=== PATIENT | male | born 1945 | race Caucasian/White ===

== ENCOUNTER → 2017-08-03 | Outpatient (CLI) | payer MEDICARE ==
--- NOTE | 2017-08-03 17:41 | XR ---
EXAMINATION TYPE: XR abdomen 1V DATE OF EXAM: 08/03/2017 CLINICAL DATA: 72 year-old male abdominal pain and constipation, PH[facility] COMPARISON: None FINDINGS: Lung bases are clear. No evidence for free intraperitoneal air. No dilated small bowel or air-fluid levels. Scattered air and stool seen throughout the colon extendi ng distally into the rectum. Moderate stool burden. No suspicious calcifications identified. IMPRESSION: 1. Moderate stool burden. 2.No evidence of bowel obstruction or free intraperitoneal air.
== END | disposition home or self-care (01) ==
LOC: RADXRMAIN 14:07
PROVIDERS: ATTEND Family Medicine
DX: R10.84 Generalized abdominal pain (principal)
CPT/HCPCS: 74018

== ENCOUNTER → 2017-08-10 | Outpatient (CLI) | payer MEDICARE ==
--- NOTE | 2017-08-10 13:20 | US ---
EXAMINATION TYPE: US gallbladder DATE OF EXAM: 08/10/2017 COMPARISON: NONE CLINICAL HISTORY: R10.9 ABDOMINAL PAIN. constipation for 2-3 weeks, abd distension EXAM MEASUREMENTS: Liver Length: 14.5 cm Gallbladder Wall: 0.2 cm CBD: 0.5 cm Right Kidney: 9.6 x 4.0 x 5.3 cm limited visibility due to bowel gas and high placement of liver within ribcage Pancreas: limited views appear wnl Liver: heterogeneous lesion noted at right dome of liver = 2.9cm, patient states h/o liver lesion bu t had no additional information as to where is was previously seen Gallbladder: wnl Evidence for sonographic Avendano's sign: no CBD: wnl Right Kidney: multiple cystic areas seen, largest at inferior pole = 4.3cm, possible hydronephrosis seen. Significant portions of pancreas are obscured by overlying bowel gas. Visualized liver is heterogeneo usly hyperechoic without intrahepatic ductal dilatation. Evaluation for focal masses suboptimal due t o the heterogeneity. Technologist sullivan vague slightly hypoechoic superficial and hyperechoic deeper area. Images of right kidney show mild to moderate suspected pyelocaliectasis. A thin-walled 4.3 cm c yst is marked lower pole level in the right kidney. Portions of gallbladder shows no shadowing mobile gallstones. IMPRESSION: 1. Suboptimal study, no gallstones or sector ultrasound evidence for acute cholecystitis on images sa veena. 2. Probable diffuse fatty infiltration of liver. Correlate clinically and with liver and lab enzymes. 3. Suspect mild to moderate right-sided hydronephrosis. CT and/or MRI could BE performed to further e valuate liver and right kidney.
== END | disposition home or self-care (01) ==
LOC: RADUSWWP 11:24
PROVIDERS: ATTEND Family Medicine
DX: R10.9 Unspecified abdominal pain (principal)
CPT/HCPCS: 76705

== ENCOUNTER → 2017-08-18 | Outpatient (CLI) | payer MEDICARE ==
--- NOTE | 2017-08-19 07:49 | CT ---
EXAMINATION TYPE: CT abdomen pelvis wo con DATE OF EXAM: 08/18/2017 COMPARISON: Abdominal ultrasound dated 08/03/2016 HISTORY: Generalized abdominal pain and constipation. CT DLP: 957 mGycm Automated exposure control for dose reduction was used. TECHNIQUE: Helical acquisition of images was performed from the lung bases through the pelvis. FINDINGS: Lack of intravenous contrast limits evaluation of the solid viscera. LUNG BASES: Linear right bibasilar pleural-parenchymal scarring and subsegmental atelectasis are seen . LIVER/GB: There is a hepatic cyst at the hepatic dome within segment 8 measuring 1.2 cm. Smaller scat tered hypoattenuated hepatic lesions are too small to accurately characterize but likely represent cy sts. Additionally there is geographic patchy areas of hypoattenuation that given their geographic mor phology most commonly represent areas of focal fatty infiltration. No evidence of cholelithiasis. PANCREAS: No significant abnormality is seen. SPLEEN: Unremarkable unenhanced morphology. Nonenlarged. ADRENALS: No nodularity or thickening. KIDNEYS: There is a 4 mm right upper pole nonobstructing calculus, 2 midpole 1 to 2 mm nonobstructing renal calculi, and 2 3 mm nonobstructing renal calculi. From the inferior pole there is a 3.7 cm jayden al cyst. Smaller right upper pole renal cysts and probable right lower pole renal cyst measures appro ximately 9 mm each. From the left mid pole there is an exophytic 1.0 cm renal cyst. There is mild right hydronephrosis secondary to a partially obstructing right ureteral 4 mm calculus. This was suspected on the prior exam of 718. Right posterior lateral small urinary bladder diverticu lum is suspected left lateral urinary bladder diverticulum are seen. FREE AIR: No free air is visualized REPRODUCTIVE ORGANS: The enlarged prostate gland impresses upon the urinary bladder. Prostate gland i s heterogenous containing central zone calcifications. Small fat filled bilateral inguinal hernias ar e present. Small bowel enters the most cranial portion of the right inguinal hernia but does not appe ar enlarged. URINARY BLADDER: Incompletely evaluated due to lack of contrast and incomplete distention. As mentio romelia above there are urinary bladder diverticulum. ADENOPATHY: No greater than 1 cm short axis lymph nodes are seen within the abdomen or pelvis. No jack spicious adenopathy. OSSEOUS STRUCTURES: Mild to moderate multilevel degenerative disc disease of the lumbosacral spine a nd visualized thoracolumbar spine are noted. BOWEL: There is a small hiatal hernia containing contrast that could relate to gastroesophageal refl ux or incomplete propulsion. IMPRESSION: 1. MILD RIGHT HYDRONEPHROSIS SECONDARY TO A PARTIALLY OBSTRUCTING 4 MM CALCULUS WITHIN THE MID URETER SUSPECTED ON THE PRIOR EXAM OF 08/10/2017. ADDITIONAL NONOBSTRUCTIVE RIGHT RENAL CALCULI ARE DESCR IBED ABOVE. 2. PATCHY AREAS OF GEOGRAPHIC HYPOATTENUATION WITHIN THE LIVER MOST COMMONLY REPRESENT HEPATIC STEATO SIS ALTHOUGH CORRELATION WITH SERUM LABORATORY VALUES IS RECOMMENDED TO EXCLUDE OTHER HEPATOCELLULAR DISEASES. SIMPLE HEPATIC CYSTS AND OTHER SMALLER PROBABLE HEPATIC CYSTS ARE PRESENT. 3. BILATERAL SIMPLE APPEARING RENAL CYSTS 4. URINARY BLADDER DIVERTICULI AND ENLARGEMENT WELL HETEROGENEITY OF THE PROSTATE GLAND. TOGETH ER FINDINGS COULD REPRESENT URINARY BLADDER OUTLET OBSTRUCTION. 5. SMALL BILATERAL FAT FILLED ANGLE HERNIAS WITH SMALL BOWEL ENTERING THE MOST CRANIAL ASPECT OF THE RIGHT INGUINAL HERNIA. NO CURRENT CT EVIDENCE OF ENTRAPMENT OR BOWEL OBSTRUCTION. 6. SMALL HIATAL HERNIA CONTAINING CONTRAST THAT COULD BE RESIDUAL CONTRAST OR GASTROESOPHAGEAL REFLUX . A Yellow level critical message alert has been initiated for Carlitos Eason DO via the [employer] Critical Results System on 08/19/2017 7:47 AM. This message alert has been sent to Carlitos patel DO via the preferences provided by the clinician for the receipt of Radiology Critical Findings. Message ID [id number].
== END | disposition home or self-care (01) ==
LOC: RADCTMAIN 13:51
PROVIDERS: ATTEND Family Medicine
DX: N28.1 Cyst of kidney, acquired (principal); N13.2 Hydronephrosis with renal and ureteral calculous obstruction; K40.90 Unilateral inguinal hernia, without obstruction or gangrene, not specified as recurrent; K44.9 Diaphragmatic hernia without obstruction or gangrene; K76.89 Other specified diseases of liver; N40.0 Benign prostatic hyperplasia without lower urinary tract symptoms; N32.3 Diverticulum of bladder
CPT/HCPCS: 74176

== ENCOUNTER → 2017-08-25 | Outpatient (CLI) | payer MEDICARE ==
--- NOTE | 2017-08-25 10:11 | XR ---
EXAMINATION TYPE: XR KUB DATE OF EXAM: 08/25/2017 9:54 AM CLINICAL HISTORY: 08/18/2017 TECHNIQUE: Single supine KUB image of the abdomen is obtained. COMPARISON: 08/18/2017 CT abdomen pelvis. FINDINGS: Previously seen right-sided calculus at the level of L4-[address] of 08/18/2017 is th ought to be located currently at the right ureterovesicular junction measuring approximately 5 mm. Ri ght upper pole renal calculus measures approximately 4 mm. The other known renal calculi are not visu alized due to overlying bowel gas on the right. Moderate amount retained colonic stool is noted. Mode rate femoral acetabular arthropathy is seen. IMPRESSION: The previously seen right midureteral calculus has progressed and now appears to be locat ed at the right ureterovesicular junction. Punctate right upper pole renal calculus is also seen, lik kleber nonobstructing.
== END | disposition home or self-care (01) ==
LOC: RADXRMAIN 09:37
PROVIDERS: ATTEND Urology
DX: N20.2 Calculus of kidney with calculus of ureter (principal)
CPT/HCPCS: 74018

== ENCOUNTER → 2017-10-05 | Outpatient (CLI) | payer MEDICARE ==
--- NOTE | 2017-10-05 09:12 | XR ---
EXAMINATION TYPE: XR KUB DATE OF EXAM: 10/05/2017 HISTORY: Pain Comparison: 08/25/2017 Single KUB is submitted for interpretation. Findings: Right renal calculi: Stable calculus upper pole right kidney measuring approximately 4 mm. Suspect ad ditional calculus lower pole right kidney measuring 4.5 mm. Right ureteral calculi: 4.6 mm right distal ureteral calculus is unchanged in location Left renal calculi: None Visualized. Left ureteral calculi: None Visualized. Pelvic calcifications: Prostate calcifications identified. Bowel gas pattern is unremarkable. No free air. No mass effects. IMPRESSION: 1. Right-sided nephrolithiasis as noted. 2. Stable distal right ureteral calculus essentially unchanged in position.
== END | disposition home or self-care (01) ==
LOC: RADXRMAIN 08:30
PROVIDERS: ATTEND Urology
DX: N20.2 Calculus of kidney with calculus of ureter (principal)
CPT/HCPCS: 74018

== ENCOUNTER → 2017-10-24 | Outpatient (CLI) | payer MEDICARE ==
--- NOTE | 2017-10-24 12:06 | XR ---
EXAMINATION TYPE: XR KUB DATE OF EXAM: 10/24/2017 COMPARISON: 10/05/2017 HISTORY: Pain TECHNIQUE: One view abdominal series FINDINGS: The osseous structures are intact. The bowel gas pattern is nonspecific. Hypertrophic change of the spine. There is calcifications in the pelvis some which may be related to prostate. At the level of the ischial spine there is a 3.5 mm calcification suspicious for a distal right urete ral calculus. Appears stable from the prior exam. Assessment of the right upper quadrant limited due to retained fecal debris. Punctate 4 mm right uppe r quadrant calcification is stable may be related to right renal stone. IMPRESSION: 1. Right hemipelvic calcification potentially within the distal right ureter stable from prior exam. 2. Suspected stable right-sided nephrolithiasis.
[2017-10-24 12:18] LABS: Basophils % (A) 0 %; Eosinophils % (A) 1 %; HCT 46.2 % (39.0-53.0); HGB 14.8 gm/dL (13.0-17.5); Lymphocytes # (A) 1.2 k/uL (1.0-4.8); Lymphocytes % (A) 34 %; MCH 30.8 pg (25.0-35.0); MCHC 32.1 g/dL (31.0-37.0); Mean Platelet Volume 7.1; Monocytes # (A) 0.3 k/uL (0-1.0); Monocytes % (A) 9 %; Neutrophils # (A) 1.8 k/uL (1.3-7.7); Neutrophils % (A) 52 %; Platelet Count 223 k/uL (150-450); RBC 4.81 m/uL (4.30-5.90); RDW 13.6 % (11.5-15.5); WBC 3.5 k/uL (3.8-10.6)
[2017-10-24 12:53] LABS: Appearance,Urine Clear (Clear); Bilirubin,Urine Negative (Negative); Blood,Urine Negative (Negative); Color,Urine Yellow; Glucose,Urine (UA) Negative (Negative); Ketones,Urine Negative (Negative); Leukocyte Esterase,Urine Small (Negative); Mucus,Urine Rare /hpf; Nitrite,Urine Positive (Negative); PH, Urine 5.5 (5.0-8.0); Protein,Urine Negative (Negative); Specific Gravity,Urine 1.015 (1.001-1.035); Squamous Epithelial Cell,Urine <1 /hpf (0-4); Urobilinogen,Urine <2.0 mg/dL (<2.0); WBC,Urine 7 /hpf (0-5)
== END | disposition home or self-care (01) ==
LOC: RADXRMAIN 11:28
PROVIDERS: ATTEND Urology
DX: N28.89 Other specified disorders of kidney and ureter (principal)
CPT/HCPCS: 36415; 74018; 80051; 81001; 82565; 84520; 85025

== ENCOUNTER 2017-10-31 09:06 | Day surgery (SDC) | payer MEDICARE ==
[2017-10-25 16:04] VITALS: BMI 28.1
--- NOTE | 2017-10-28 08:02 | P.GSHP ---
History of Present Illness H&P Date: 10/28/17 71 yo male with a persistent pain due to a 5 mm distal right ureteral stone who comes for eswl - Review of Systems ROS unobtainable: Reports: due to endotracheal tube, due to mental status Past Medical History Past Medical History: Skin Disorder Additional Past Medical History / Comment(s): Kidney stone, rosacea, hx colon polyp, inguinal hernia History of Any Multi-Drug Resistant Organisms: None Reported Additional Past Surgical History / Comment(s): colonoscopy Past Anesthesia/Blood Transfusion Reactions: No Reported Reaction Smoking Status: Never smoker - Past Family History Brother(s) Family Medical History: Cancer Additional Family Medical History / Comment(s): lung Medications and Allergies Home Medications Medication Instructions Recorded Confirmed Type Erythromycin Ophth Oint [Romycin 1 applic BOTH EYES QID PRN 10/25/17 10/25/17 History Ophth Oint] Triamcinolone 0.025% Cream 1 applic TOPICAL DAILY PRN 10/25/17 10/25/17 History [Kenalog 0.025% Cream] Allergies Allergy/AdvReac Type Severity Reaction Status Date / Time No Known Allergies Allergy Verified 10/25/17 15:52 Surgical - Exam - General well developed, well nourished, no distress - Eyes PERRL - ENT no hearing loss - Neck no masses - Respiratory normal expansion, normal respiratory effort - Cardiovascular Rhythm: regular - Abdomen Abdomen: soft, non tender - Genitourinary normal penis with no external lesions, testicles present - Neurologic normal coordination, normal sensation - Musculoskeletal normal gait, normal posture - Psychiatric oriented to time, oriented to person, oriented to place, speech is normal, memory intact Assessment and Plan Assessment: Impression: Right ureteral calculous Plan; Right ESWL
[~2017-10-31 09:06] MED LIST: LACTATED RINGERS 1,000 ML IV SCH
--- NOTE | 2017-10-31 09:30 | XR ---
EXAMINATION TYPE: XR KUB DATE OF EXAM: 10/31/2017 HISTORY: 10/24/2017 Comparison: None.Single KUB is submitted for interpretation. Findings: Right renal calculi: Stable right-sided renal calculi noted with upper pole calculus measuring 3.5 mm as well as additional calculus lower pole right kidney measuring 2.6 mm. Right ureteral calculi: Suspect distal right ureteral calculus unchanged in position from prior study measuring approximately 4 mm. Left renal calculi: None Visualized. Left ureteral calculi: None Visualized. Pelvic calcifications: None Visualized. Bowel gas pattern is unremarkable. No free air. No mass effects. IMPRESSION: 1. No change in distal right ureteral calculus as well as right-sided renal calculi.
[2017-10-31 10:00] VITALS: RESP 16; TEMP 98.1
[2017-10-31] MEDS ORDERED: LIDOCAINE 1% 20 ML VIAL (10MG/ML) FOR IV START INTRADERMA ONE (10:07)
[2017-10-31] MEDS ORDERED: KETAMINE 10 MG/ML 20 ML VIAL ONE (10:34)
[2017-10-31] MEDS ORDERED: MIDAZOLAM 2 MG/2 ML VIAL ONE (10:34)
[2017-10-31] MEDS ORDERED: PROPOFOL 10 MG/ML 20 ML VIAL IV ONE (10:34)
[2017-10-31] MEDS ORDERED: FUROSEMIDE 10 MG/ML 2 ML VIAL ONE (10:34)
[2017-10-31] MEDS ORDERED: fentaNYL (PF) 50 MCG/ML 2 ML AMP ONE (10:34)
--- NOTE | 2017-10-31 11:19 | P.OP ---
Date of Procedure: 10/31/17 Preoperative Diagnosis: Right Ureteral Calculus Postoperative Diagnosis: Same Procedure(s) Performed: Right Extracorporal Shockwave Lithotripsy (ESWL) Anesthesia: MAC Surgeon: Tony Crabtree Estimated Blood Loss (ml): 0 IV fluids (ml): 900 Pathology: none sent Condition: stable Disposition: PACU Indications for Procedure: 71 yo male with a persistent pain due to a 5 mm distal right ureteral stone who comes for ESWL. Operative Findings: The calculus is noted to fragment. Description of Procedure: The patient was taken to the operating room and placed on the D[employer]ier Lightspeed Delta II lithotripter in the supine position. The calculus was seen on biplanar fluoroscopy. Lasix 10 mg was given intravenously. Once the patient was properly positioned and sedated, lithotripsy was performed. The energy level was gradually increased per protocol, to an energy level of 6. A total of 3000 shocks were given at a rate of 80 shocks per minute. Fluoroscopy was utilized at a minimum to ensure proper positioning and determine the treatment status. The calculus changed in appearance, consistent with fragmentation. The patient tolerated the procedure well was taken to the recovery room in stable condition. Instructions were given to strain the urine, and the patient will follow-up within one week.
[2017-10-31 11:52] VITALS: BP 162/82; PULSE 59
== END 2017-10-31 13:30 | disposition home or self-care (01) ==
LOC: ORWHC2ENDO 09:06
PROVIDERS: ATTEND Urology
DX: N20.1 Calculus of ureter (principal); L71.9 Rosacea, unspecified
CPT/HCPCS: 74018; 50590; J2250; J1940; J3010; J2704

== ENCOUNTER → 2017-11-04 | Outpatient (CLI) | payer MEDICARE ==
--- NOTE | 2017-11-04 10:25 | XR ---
EXAMINATION TYPE: XR KUB DATE OF EXAM: 11/04/2017 9:43 AM CLINICAL HISTORY: Right ureter calculus, history of stones TECHNIQUE: Two Upright KUB images of the abdomen are obtained. COMPARISON: CT abdomen and pelvis August 18, 2017. Most recent abdominal x-ray August 30, 2017 FINDINGS: Previously suspected distal right ureter calculus measuring 4 mm is not clearly seen on lexi bonilla's study. Suspect interval passage. Calcifications just superior to pubic symphysis correlate with prostatic calcifications. There is redemonstration of 2 4 to 5 mm calculi right kidney upper and lowe r pole levels felt stable. No definitive left-sided renal calculi. Overall nonobstructive bowel gas pattern. Visualized lung bases are clear. Moderate disc space narrow ing L2-L3 level is redemonstrated. IMPRESSION: Suspect interval passage of distal right ureter calculus. Stable nonobstructing right jayden al calculi.
== END | disposition home or self-care (01) ==
LOC: RADXRMAIN 09:15
PROVIDERS: ATTEND Urology
DX: N20.2 Calculus of kidney with calculus of ureter (principal); Z98.890 Other specified postprocedural states
CPT/HCPCS: 74018

== ENCOUNTER → 2017-11-21 | Outpatient (CLI) | payer MEDICARE ==
[2017-11-21 11:39] LABS: Basophils % (A) 1 %; Eosinophils % (A) 1 %; HCT 46.6 % (39.0-53.0); HGB 15.4 gm/dL (13.0-17.5); Lymphocytes % (A) 26 %; MCH 31.4 pg (25.0-35.0); MCHC 33.2 g/dL (31.0-37.0); MCV 94.6 fL (80.0-100.0); Mean Platelet Volume 6.6; Monocytes # (A) 0.3 k/uL (0-1.0); Monocytes % (A) 7 %; Neutrophils # (A) 2.5 k/uL (1.3-7.7); Neutrophils % (A) 64 %; Platelet Count 198 k/uL (150-450); RBC 4.92 m/uL (4.30-5.90); RDW 13.1 % (11.5-15.5); WBC 3.9 k/uL (3.8-10.6)
[2017-11-21 11:47] LABS: Amorphous Sediment,Urine Occasional /hpf; Appearance,Urine Clear (Clear); Bacteria,Urine Rare /hpf; Bilirubin,Urine Negative (Negative); Blood,Urine Trace (Negative); Color,Urine Yellow; Glucose,Urine (UA) Negative (Negative); Ketones,Urine 1+ (Negative); Leukocyte Esterase,Urine Small (Negative); Mucus,Urine Rare /hpf; Nitrite,Urine Positive (Negative); PH, Urine 5.5 (5.0-8.0); Protein,Urine Negative (Negative); RBC,Urine 5 /hpf (0-5); Specific Gravity,Urine 1.017 (1.001-1.035); Squamous Epithelial Cell,Urine <1 /hpf (0-4); Urobilinogen,Urine <2.0 mg/dL (<2.0); WBC,Urine 11 /hpf (0-5)
[2017-11-21 11:50] LABS: Potassium 4.8 mmol/L (3.5-5.1)
== END | disposition home or self-care (01) ==
LOC: LABPAT 10:20
PROVIDERS: ATTEND Urology
DX: Z01.812 Encounter for preprocedural laboratory examination (principal); N20.0 Calculus of kidney
CPT/HCPCS: 36415; 80051; 81001; 82565; 84520; 85025

== ENCOUNTER 2017-11-28 06:55 | Day surgery (SDC) | payer MEDICARE ==
[2017-11-23 14:20] VITALS: BMI 25.8
--- NOTE | 2017-11-27 20:12 | P.GSHP ---
History of Present Illness H&P Date: 11/27/17 72 yo male who underwent a successful eswl to a right ureteral stone He now comes for eswl to the right renal stones, 4&5 mm - Constitutional Constitutional: Denies chills, Denies fever - EENT Eyes: denies blurred vision, denies pain Ears, nose, mouth and throat: Denies headache, Denies sore throat - Cardiovascular Cardiovascular: Denies chest pain, Denies shortness of breath - Respiratory Respiratory: Denies cough, Denies 7 - Gastrointestinal Gastrointestinal: Denies abdominal pain, Denies diarrhea, Denies nausea, Denies vomiting - Genitourinary (Female) Genitourinary: Denies dysuria, Denies hematuria - Genitourinary (Male) Genitourinary: Denies dysuria, Denies hematuria - Musculoskeletal Musculoskeletal: Denies myalgias - Integumentary Integumentary: Denies pruritus, Denies rash - Neurological Neurological: Denies numbness, Denies weakness - Psychiatric Psychiatric: Denies anxiety, Denies depression - Endocrine Endocrine: Denies fatigue, Denies weight change Past Medical History Past Medical History: GERD/Reflux, Hypertension, Skin Disorder Additional Past Medical History / Comment(s): no rx for BP, constipation, rosacea, kidney stones, History of Any Multi-Drug Resistant Organisms: None Reported Additional Past Surgical History / Comment(s): colonoscopy Past Anesthesia/Blood Transfusion Reactions: No Reported Reaction Smoking Status: Never smoker - Past Family History Brother(s) Family Medical History: Cancer Medications and Allergies Home Medications Medication Instructions Recorded Confirmed Type Erythromycin Ophth Oint [Romycin 1 applic BOTH EYES QID PRN 10/25/17 11/23/17 History Ophth Oint] Triamcinolone 0.025% Cream 1 applic TOPICAL DIRECTED PRN 10/25/17 11/23/17 History [Kenalog 0.025% Cream] Hydrocodone/Acetaminophen [[place] 1 - 2 each PO Q4HR PRN #10 tab 10/31/17 Rx 5-325] Benzoyl Peroxide [Panoxyl] 1 applic TOPICAL DAILY PRN 11/23/17 11/23/17 History Bisacodyl [Dulcolax] 5 mg PO DAILY PRN 11/23/17 11/23/17 History Esomeprazole Magnesium [NexIUM] 20 mg PO DAILY 10/10/18 10/10/18 History Allergies Allergy/AdvReac Type Severity Reaction Status Date / Time No Known Allergies Allergy Verified 11/23/17 14:09 Surgical - Exam - General well developed, well nourished, no distress - Eyes PERRL - ENT no hearing loss - Neck trachea midline - Respiratory normal expansion, normal respiratory effort - Cardiovascular Rhythm: regular - Abdomen Abdomen: soft, non tender - Genitourinary normal penis with no external lesions, testicles present - Neurologic normal coordination, normal sensation - Musculoskeletal normal gait, normal posture - Psychiatric oriented to time, oriented to person, oriented to place, speech is normal, memory intact Assessment and Plan Assessment: Impression: Right renal stones Plan: eswl right
[~2017-11-28 06:55] MED LIST changes: +LIDOCAINE 1% 20 ML VIAL (10MG/ML) FOR IV START INTRADERMA PRN; +Pre Op ABX Message 1 EACH MISC MISCELLANE ONE
--- NOTE | 2017-11-28 07:22 | XR ---
EXAMINATION TYPE: XR KUB DATE OF EXAM: 11/28/2017 CLINICAL DATA: 72 year-old male right renal stones, 11/04/2017 COMPARISON: 11/04/2017 FINDINGS: Nonobstructive bowel gas pattern with mild stool burden. Rounded phlebolith in the right side of the pelvis. Calcifications in the pelvis probably represent phleboliths. Some central prosthetic calcific ations are also noted low in the pelvis. 4 mm calcification in the right midabdomen is unchanged. IMPRESSION: Stable 4 mm calcification in the right side of the abdomen, possible renal calculus.
[2017-11-28 07:49] VITALS: RESP 16; TEMP 98
[2017-11-28] MEDS ORDERED: ONDANSETRON 4 MG/2 ML VIAL IVP ONE (08:02)
[2017-11-28] MEDS ORDERED: DEXAMETHASONE SOD PHOSPHATE 10 MG/ML 1 ML VIAL IV ONE (08:02)
[2017-11-28] MEDS ORDERED: LIDOCAINE 1% INJ 10MG/ML (20 ML MDV) ONE (08:39)
[2017-11-28] MEDS ORDERED: PROPOFOL 10 MG/ML 20 ML VIAL IV ONE (08:39)
--- NOTE | 2017-11-28 09:16 | P.OP ---
Date of Procedure: 11/28/17 Preoperative Diagnosis: Right renal calculus Postoperative Diagnosis: Right renal calculus Procedure(s) Performed: Extracorporal shock wave lithotripsy Anesthesia: MAC Surgeon: Alpesh Aguilar Estimated Blood Loss (ml): 0 Pathology: none sent Condition: stable Disposition: PACU Indications for Procedure: The patient is a 72 year old male with urolithiasis who has a 4x5 mm calculus in the upper pole of the right kidney. Treatment options were reviewed with Dr Huddleston and ESWL has been chosen. Description of Procedure: The patient was taken to the operating suite and placed in the supine position on the fluoroscopy table. The calculus in the upper pole of the right kidney was localized with biplanar fluoroscopy. Intravenous sedation was given. Lithotripsy was performed with the D[employer]ier Compact Delta II unit. A two minute pause was taken after 200 shocks. The patient received 2000 shocks at level 4. There appeared to be good fragmentation of the calculus and no fragments were visible after 1500 shocks. . The anesthesia was reversed and the patient was taken to the recovery room in satisfactory condition. He will see Dr Huddleston in 1 week at which time a KUB will be repeated.
[2017-11-28 09:38] VITALS: BP 150/80; PULSE 56
== END 2017-11-28 10:20 | disposition home or self-care (01) ==
LOC: ORWHC2ENDO 06:55
PROVIDERS: ATTEND Urology
DX: N20.0 Calculus of kidney (principal); K21.9 Gastro-esophageal reflux disease without esophagitis; I10 Essential (primary) hypertension; L71.9 Rosacea, unspecified; Z79.899 Other long term (current) drug therapy
CPT/HCPCS: 74018; 50590; J1100; J2405; J2001; J2704

== ENCOUNTER → 2017-12-05 | Outpatient (CLI) | payer MEDICARE ==
--- NOTE | 2017-12-05 08:02 | XR ---
EXAMINATION TYPE: XR abdomen 1V DATE OF EXAM: 12/05/2017 COMPARISON: 11/28/2017 HISTORY: Right-sided nephrolithiasis status post lithotripsy. TECHNIQUE: Single view the abdomen was obtained FINDINGS: A 4 mm punctate right mid abdominal calculus is again unchanged. Phleboliths are noted with in the low pelvis, similar to the prior. No new calcifications are seen within the abdomen. No dilate d large or small bowel. Osseous structures appear intact. IMPRESSION: No new calculi along the course of the ureters or within the left abdomen. Stable 4 mm ri ght mid abdominal calculus
== END | disposition home or self-care (01) ==
LOC: RADXRMAIN 07:17
PROVIDERS: ATTEND Urology
DX: N20.0 Calculus of kidney (principal)
CPT/HCPCS: 74018

== ENCOUNTER → 2018-03-07 | Outpatient (CLI) | payer MEDICARE ==
--- NOTE | 2018-03-07 11:20 | XR ---
EXAMINATION TYPE: XR KUB DATE OF EXAM: 03/07/2018 COMPARISON: 12/05/2017 HISTORY: Pain TECHNIQUE: One view abdominal series FINDINGS: The osseous structures are intact. The bowel gas pattern is nonspecific. Calcification along the lat eral margin of the right acetabulum may been the basis of a chronic labral tear. Calcifications the p leelee are nonspecific. Hypertrophic and degenerative change of the spine. IMPRESSION: 1. Nonspecific abdomen.
== END ==
LOC: RADXRMAIN 10:37
PROVIDERS: ATTEND Urology
DX: N20.1 Calculus of ureter (principal)
CPT/HCPCS: 74018

== ENCOUNTER → 2018-03-15 | Outpatient (CLI) | payer MEDICARE ==
--- NOTE | 2018-03-15 17:09 | CT ---
EXAMINATION TYPE: CT abdomen pelvis wo con DATE OF EXAM: 03/15/2018 COMPARISON: 08/18/2017 INDICATION: Right flank and groin pain. DLP: 446.4 mGycm, Automated exposure control for dose reduction was used. CONTRAST: 0 mL of Isovue 300. Study performed without Oral Contrast TECHNIQUE: Axial images were obtained from above the diaphragm to the pubic rami in the axial plane a t 5 mm thick sections. Reconstructed images are reviewed on the computer in the coronal plane. FINDINGS: Limited CT sections are obtained the lung bases. The lung bases are clear. CT ABDOMEN: Liver: There are couple small hypodensities within the liver too small to classify. The hypodensity w ithin the superior right dome of the liver was present previously Spleen: Normal Pancreas: Normal Adrenal glands: The adrenal glands are normal. Gallbladder: Normal Kidneys: No masses are evident. No hydronephrosis is present. There is a 1.2 cm cyst in the posteri or lateral right kidney. Nonobstructing renal stones in the lateral right mid kidney measuring 0.3 cm . There is a cyst at the inferior posterior pole right kidney measuring 3.9 cm and 12 Hounsfield unit s. Additional nonobstructing renal stones are at the inferior pole right kidney measuring 0.4 and 0.3 cm in size. There is a punctate nonobstructing renal stone at the inferior pole left kidney measurin g 0.2 cm. The mid pole left renal stone without obstruction measures 0.3 cm. There is a 1.0 cm exophy tic hypodensity likely is a small cortical renal cysts at the mid left kidney. Aorta: Vascular calcification is within the aorta. Inferior vena cava: Normal. CT PELVIS: Loops of bowel within the abdomen and pelvis are normal. There are loops of bowel which are incom pletely distended or lack oral contrast limiting their evaluation. Appendix: Normal as visualized. Urinary bladder: There is a 0.3 cm calcification within the dependent urinary bladder slightly to the left. This may be a recently passed renal stone. This could potentially be at the ureterovesical viv ction although the findings suggest the ureterovesical junction at this level is slightly lateral to the location of the stone. Additionally, there is some calcification within the dependent portion or within the wall of the posterior lateral right ureter. Genitourinary structures: Prostate contains calcification. Osseous structures: No suspicious lytic or sclerotic lesions. IMPRESSIONS: 1. Multiple nonobstructing bilateral renal stones. 2. Urinary bladder stones and/or urinary bladder wall calcification. 3. Recent passage of the ureteral stone is suspected. A left ureteral vesicle junction stone is consi dered less likely.
== END | disposition home or self-care (01) ==
LOC: RADCTMAIN 13:39
PROVIDERS: ATTEND Urology
DX: N20.0 Calculus of kidney (principal)
CPT/HCPCS: 74176

== ENCOUNTER → 2018-03-22 | Outpatient (CLI) | payer MEDICARE ==
[2018-03-22 11:23] LABS: Appearance,Urine Clear (Clear); Bacteria,Urine Rare /hpf; Bilirubin,Urine Negative (Negative); Blood,Urine Negative (Negative); Color,Urine Yellow; Glucose,Urine (UA) Negative (Negative); Ketones,Urine Negative (Negative); Leukocyte Esterase,Urine Trace (Negative); Mucus,Urine Rare /hpf; Nitrite,Urine Positive (Negative); PH, Urine 6.5 (5.0-8.0); Protein,Urine Negative (Negative); Specific Gravity,Urine 1.015 (1.001-1.035); Squamous Epithelial Cell,Urine <1 /hpf (0-4); Urobilinogen,Urine <2.0 mg/dL (<2.0); WBC,Urine 8 /hpf (0-5)
[2018-03-22 11:59] LABS: Basophils % (A) 1 %; Eosinophils # (A) 0.1 k/uL (0-0.7); Eosinophils % (A) 1 %; HCT 46.3 % (39.0-53.0); HGB 14.7 gm/dL (13.0-17.5); Lymphocytes # (A) 1.2 k/uL (1.0-4.8); Lymphocytes % (A) 34 %; MCH 30.4 pg (25.0-35.0); MCHC 31.8 g/dL (31.0-37.0); MCV 95.5 fL (80.0-100.0); Mean Platelet Volume 6.8; Monocytes # (A) 0.2 k/uL (0-1.0); Monocytes % (A) 6 %; Neutrophils % (A) 56 %; Platelet Count 198 k/uL (150-450); RBC 4.84 m/uL (4.30-5.90); RDW 13.6 % (11.5-15.5); WBC 3.6 k/uL (3.8-10.6)
[2018-03-22 12:11] LABS: Calcium 9.8 mg/dL (8.4-10.2)
== END ==
LOC: LABPAT 10:17
PROVIDERS: ATTEND Urology
DX: Z01.812 Encounter for preprocedural laboratory examination (principal); N20.1 Calculus of ureter; R31.29 Other microscopic hematuria
CPT/HCPCS: 36415; 80048; 81001; 85025; 87086

== ENCOUNTER 2018-03-29 07:41 | Day surgery (SDC) | payer MEDICARE ==
[2018-03-27 14:36] VITALS: BMI 25.8
--- NOTE | 2018-03-28 18:46 | P.GSHP ---
History of Present Illness H&P Date: 03/28/18 Chief Complaint: Bilateral ureteral calculi The patient is a 73-year-old male with a history of urolithiasis who developed right flank pain approximately 3 weeks ago. He was evaluated by and a CT scan of the abdomen and pelvis without IV contrast on 03/15/2018 was obtained. This showed a 3 x 5 mm calculus in the lower pole of the right kidney and several 1-2 mm calculi in the mid pole. There was no definite hydronephrosis or hydroureter. There were some calcifications in the region of the right ureterovesical junction but it was unclear whether these were within the ureter. Since that time the patient has also experienced some left flank pain. The CT scan on 03/15 did identify a 2 x 3 mm calculus in the region of the left ureterovesical junction. Dr Huddleston discussed cystoscopy with bilateral retrogrades but is unable to perform the surgery at this time. I reviewed the patient's CT scan and discussed the procedure with the patient. Cystoscopy with bilateral retrograde pyelograms will be performed with ureteroscopy and lithotripsy in the event that ureteral calculi are identified. The patient had previously undergone ESWL treatment for a 5 mm distal right ureteral calculus on 10/31/2017 and ESWL treatment of a 4-5 mm right upper pole calculus on 11/28/2017. Both calculi appeared to fragment and were no longer visible on the most recent CT scan. - Constitutional Constitutional: Denies fever - Cardiovascular Cardiovascular: Denies chest pain, Denies shortness of breath - Respiratory Respiratory: Denies cough, Denies wheezing - Gastrointestinal Gastrointestinal: Reports as per HPI - Menstruation Menstruation: Reports as per HPI Past Medical History Additional Past Medical History / Comment(s): States irreg H/R, hx. of kidney stones. History of Any Multi-Drug Resistant Organisms: None Reported Additional Past Surgical History / Comment(s): Colonoscopy, ESWL treatment right ureteral calculus 10/31/2017 and ESWL right renal calculus 11/28/2017 Past Anesthesia/Blood Transfusion Reactions: No Reported Reaction Smoking Status: Never smoker - Past Family History Mother Family Medical History: No Reported History Brother(s) Family Medical History: Cancer Additional Family Medical History / Comment(s): Lung Medications and Allergies Home Medications Medication Instructions Recorded Confirmed Type Erythromycin Ophth Oint [Romycin 1 applic BOTH EYES QID PRN 10/25/17 03/27/18 History Ophth Oint] Triamcinolone 0.025% Cream 1 applic TOPICAL DIRECTED PRN 10/25/17 03/27/18 History [Kenalog 0.025% Cream] Benzoyl Peroxide [Panoxyl] 1 applic TOPICAL DAILY PRN 11/23/17 03/27/18 History Bisacodyl [Dulcolax] 5 mg PO DAILY PRN 11/23/17 03/27/18 History Acetaminophen [Tylenol] 325 mg PO Q4H PRN 03/27/18 03/27/18 History Calcium Carbonate [Tums] 200 mg PO DAILY PRN 03/27/18 03/27/18 History Psyllium Husk 100% [Metamucil 6 gm PO DAILY PRN 03/27/18 03/27/18 History Packet] Allergies Allergy/AdvReac Type Severity Reaction Status Date / Time No Known Allergies Allergy Verified 03/27/18 14:14 Surgical - Exam - General well developed, well nourished, no distress - ENT no hearing loss - Neck no masses, no lymphadectomy - Respiratory normal respiratory effort - Abdomen Abdomen: soft, non tender, no organomegaly Hernia: none - Genitourinary normal penis with no external lesions Assessment and Plan (1) Bilateral ureteral calculi Narrative/Plan: The patient will undergo cystoscopy with bilateral retrograde pyeloureterograms under general anesthesia. In the event that ureteral calculi are identified ureteroscopy with lithotripsy will be performed for treatment. Patient is aware of the operative risks which include pain, hematuria, infection and inability to remove the calculi. Status: Acute Code(s): N20.1 - CALCULUS OF URETER SNOMED Code(s): 51884811
[~2018-03-29 07:41] MED LIST changes: -LACTATED RINGERS 1,000 ML IV SCH; -LIDOCAINE 1% 20 ML VIAL (10MG/ML) FOR IV START INTRADERMA PRN; -Pre Op ABX Message 1 EACH MISC MISCELLANE ONE; +ceFAZolin 1,000 MG in DEXTROSE/WATER 1 50ML.BAG IVPB ONE
[2018-03-29] MEDS ORDERED: HYDROmorphone 0.5 MG/0.5 ML SYRINGE IVP PRN (07:53)
[2018-03-29] MEDS ORDERED: ONDANSETRON 4 MG/2 ML VIAL IVP ONE (07:53)
[2018-03-29] MEDS ORDERED: SCOPOLAMINE 1.5MG/72HR PATCH TRANSDERM ONE (07:53)
[2018-03-29] MEDS ORDERED: LACTATED RINGERS 1,000 ML IV SCH (07:53)
[2018-03-29] MEDS ORDERED: LIDOCAINE 1% 20 ML VIAL (10MG/ML) FOR IV START INTRADERMA PRN (07:53)
[2018-03-29] MEDS ORDERED: MIDAZOLAM (PF) 2 MG/2 ML VIAL IV PRN (07:53)
[2018-03-29] MEDS ORDERED: DEXAMETHASONE SOD PHOSPHATE 10 MG/ML 1 ML VIAL IV ONE (07:53)
[2018-03-29] MEDS ORDERED: LIDOCAINE 1% INJ 10MG/ML (20 ML MDV) ONE (08:21)
[2018-03-29] MEDS ORDERED: SUCCINYLCHOLINE CHLORIDE 100 MG/5 ML SYR IV ONE (08:21)
[2018-03-29] MEDS ORDERED: MIDAZOLAM 2 MG/2 ML VIAL ONE (08:21)
[2018-03-29] MEDS ORDERED: ePHEDrine SULFATE/0.9% NACL/PF 50 MG/5 ML SYRINGE IV ONE (08:21)
[2018-03-29] MEDS ORDERED: ceFAZolin 1,000 MG VIAL ONE (08:21)
[2018-03-29] MEDS ORDERED: PROPOFOL 10 MG/ML 20 ML VIAL IV ONE (08:21)
[2018-03-29] MEDS ORDERED: fentaNYL (PF) 50 MCG/ML 2 ML AMP ONE (08:21)
--- NOTE | 2018-03-29 08:26 | XR ---
EXAMINATION TYPE: XR KUB DATE OF EXAM: 03/29/2018 CLINICAL DATA: 73-year-old male bilateral kidney stones, preoperative assessment, [facility] COMPARISON: 03/07/2018 FINDINGS: Lung bases are clear. Supine imaging limited for assessment of free intraperitoneal air. Mild overall stool burden. Some central prostatic calcifications are noted. Some faint small calcifications are noted in the right midabdomen measuring up to 3 mm. Overlying bow el content causes limitations in assessment. Bladder calculi seen on recent CT are not well demonstra jaime radiographically. IMPRESSION: Faint right-sided nephrolithiasis suggested radiographically. Known bladder calculi not well depicted . Prostatic calcifications.
[2018-03-29 08:28] VITALS: TEMP 97.5
[2018-03-29] MEDS ORDERED: IOPAMIDOL-370 50ML BTL IRRIGATION ONE (08:48)
--- NOTE | 2018-03-29 09:21 | P.OP ---
Date of Procedure: 03/29/18 Preoperative Diagnosis: Possible bilateral distal ureteral calculi Postoperative Diagnosis: Calculus fragments in bladder-normal ureters Procedure(s) Performed: Cystoscopy with bilateral retrograde ureterograms and irrigation of bladder calculus fragments from bladder Anesthesia: ZACHARY Surgeon: Alpesh Aguilar Estimated Blood Loss (ml): 0 Pathology: other (Calculus fragments in bladder) Indications for Procedure: The patient is a 73-year-old male with a history of urolithiasis who had undergone ESWL treatment of a distal right ureteral calculus in 10/2017 and an upper pole right renal calculus in 11/2017. The patient continues to have intermittent right and left flank pain. A recent computed tomography scan of the abdomen and pelvis without IV contrast suggested a possible calculus near the left ureteral meatus and possible calculi in the distal left ureter. Cystoscopy with bilateral retrogrades and possible bilateral ureteroscopy with lithotripsy is planned. Description of Procedure: The patient was taken the operative suite where adequate general anesthesia via orotracheal intubation was instituted. The patient was placed in the dorsal lithotomy position with his legs suspended from padded Hesham stirrups. Pneumatic compression stockings were applied to the lower legs. The genitalia was prepped with Betadine soap, painted with Betadine solution and draped in a sterile fashion. The external genitalia and urethral meatus were unremarkable. The 19-Somali cystoscope sheath with 30 lens was passed through the urethra under direct vision. The anterior urethra was unremarkable. Prostatic urethra showed evidence of elongation and effacement of the lateral lobes in the midline. There was some protrusion of the median lobe of the prostate into the bladder. Bladder was examined. The bladder was trabeculated with numerous cellules and small diverticuli. Within a diverticulum lateral to the right ureteral orifice were several calculus fragments measuring between 1 and 3 mm in diameter. These fragments were irrigated out from the bladder through the cystoscope. The right ureteral orifice was unremarkable. There was some edema adjacent to the left ureteral orifice but no calculus was visible. The remainder the bladder was unremarkable. Bilateral retrograde distal and mid ureterograms were performed using an 8-Somali cone-tipped catheter. There was no evidence of filling defect within either ureter and both ureters drained promptly. The bladder was drained and the cystoscope was withdrawn. The patient tolerated the procedure well and left the operative room awake and in satisfactory condition. The calculus fragments present within the bladder may have been from previous ESWL treatment of the right ureteral and renal calculi.
[2018-03-29 09:39] VITALS: RESP 16
[2018-03-29] MEDS ORDERED: LACTATED RINGERS 1,000 ML IV ONE ×2 (10:05)
--- NOTE | 2018-03-29 10:06 | FL ---
EXAMINATION TYPE: FL cystogram DATE OF EXAM: 03/29/2018 COMPARISON: NONE HISTORY: 73 year-old male right cystogram TECHNIQUE: Fluoroscopy. FINDINGS: Fluoroscopic guidance was provided during procedure performed by Dr. Aguilar. A total of 8 seconds of fluoroscopic time was utilized during the procedure and 5 spot images was acquired. IMPRESSION: Fluoroscopy as above. Refer to urologic procedure note for complete findings and impression.
[2018-03-29 11:10] VITALS: BP 178/79; PULSE 61
== END 2018-03-29 11:31 | disposition home or self-care (01) ==
LOC: OR 07:41
PROVIDERS: ATTEND Urology
DX: N21.0 Calculus in bladder (principal); N32.3 Diverticulum of bladder; N32.89 Other specified disorders of bladder; K21.9 Gastro-esophageal reflux disease without esophagitis; Z87.442 Personal history of urinary calculi; Z98.890 Other specified postprocedural states; Z79.899 Other long term (current) drug therapy
CPT/HCPCS: 52005; 82365; 74430; 74018; C1758 ×3; J2250; J1100; J2405; J0690; J2001; J3010; J0330; J2704; Q9967

== ENCOUNTER → 2018-08-09 | Outpatient (CLI) | payer MEDICARE ==
[2018-08-09 09:04] LABS: Basophils % (A) 0 %; Eosinophils % (A) 1 %; HCT 44.6 % (39.0-53.0); HGB 13.9 gm/dL (13.0-17.5); Lymphocytes # (A) 1.4 k/uL (1.0-4.8); Lymphocytes % (A) 35 %; MCH 29.5 pg (25.0-35.0); MCHC 31.2 g/dL (31.0-37.0); MCV 94.6 fL (80.0-100.0); Mean Platelet Volume 6.6; Monocytes # (A) 0.3 k/uL (0-1.0); Monocytes % (A) 7 %; Neutrophils # (A) 2.2 k/uL (1.3-7.7); Neutrophils % (A) 55 %; Platelet Count 213 k/uL (150-450); RBC 4.72 m/uL (4.30-5.90); RDW 13.8 % (11.5-15.5)
[2018-08-09 09:34] LABS: Calcium 9.8 mg/dL (8.4-10.2); Potassium 4.9 mmol/L (3.5-5.1)
[2018-08-09 09:59] LABS: Appearance,Urine Clear (Clear); Bilirubin,Urine Negative (Negative); Blood,Urine Trace (Negative); Color,Urine Yellow; Glucose,Urine (UA) Negative (Negative); Ketones,Urine Negative (Negative); Leukocyte Esterase,Urine Small (Negative); Mucus,Urine Rare /hpf; Nitrite,Urine Positive (Negative); Protein,Urine Negative (Negative); RBC,Urine 4 /hpf (0-5); Specific Gravity,Urine 1.022 (1.001-1.035); Squamous Epithelial Cell,Urine <1 /hpf (0-4); Urobilinogen,Urine <2.0 mg/dL (<2.0); WBC,Urine 13 /hpf (0-5)
== END | disposition home or self-care (01) ==
LOC: LABPAT 08:10
PROVIDERS: ATTEND Urology
DX: Z01.812 Encounter for preprocedural laboratory examination (principal); Z01.818 Encounter for other preprocedural examination; N40.1 Benign prostatic hyperplasia with lower urinary tract symptoms; N13.8 Other obstructive and reflux uropathy; R35.0 Frequency of micturition; I48.91 Unspecified atrial fibrillation
CPT/HCPCS: 36415; 80048; 81001; 85025; 87086; 93005

== ENCOUNTER → 2020-10-09 | Outpatient (CLI) | payer MEDICARE ==
[2020-10-09 17:40] LABS: Protein, Total 6.4 g/dL (6.2-8.2)
[2020-10-10 13:41] LABS: Albumin 4.02 g/dL (3.80-4.90); Gamma Globulin 0.79 g/dL (0.70-1.50)
== END | disposition home or self-care (01) ==
LOC: LABWHC1 09:06
PROVIDERS: ATTEND Psychiatry & Neurology Neurology
DX: G62.9 Polyneuropathy, unspecified (principal); Z79.899 Other long term (current) drug therapy
CPT/HCPCS: 36415; 82306; 82607; 84165

== ENCOUNTER → 2021-04-21 | Outpatient (CLI) | payer MEDICARE ==
[2021-04-21 15:24] LABS: Basophils # (A) 0.04 X 10*3/uL (0.00-0.10); Basophils % (A) 0.8 %; Eosinophils # (A) 0.08 X 10*3/uL (0.04-0.35); Eosinophils % (A) 1.7 %; HCT 44.5 % (39.6-50.0); HGB 14.3 g/dL (13.0-17.0); Immature Grans, Automated 0.2 %; Lymphocytes # (A) 2.16 X 10*3/uL (0.90-5.00); Lymphocytes % (A) 45.1 %; MCH 30.9 pg (27.0-32.0); MCHC 32.1 g/dL (32.0-37.0); MCV 96.1 fL (80.0-97.0); Mean Platelet Volume 9.7 fL (9.5-12.2); Monocytes # (A) 0.54 X 10*3/uL (0.20-1.00); Monocytes % (A) 11.3 %; NRBC Per 100 WBC 0 /100 WBCS (0.0-0.0); Neutrophils # (A) 1.96 X 10*3/uL (1.80-7.70); Neutrophils % (A) 40.9 %; Platelet Count 210 X 10*3/uL (140-440); RBC 4.63 X 10*6/uL (4.40-5.60); RDW 13.6 % (11.5-14.5); WBC 4.79 X 10*3/uL (4.50-10.00)
[2021-04-21 15:45] LABS: African American GFR (CKD) 52.6 (60.0-200.0); Albumin 4.6 g/dL (3.8-4.9); Albumin/Globulin Ratio 1.6 (1.60-3.17); Anion Gap 13.6 mmol/L (10.00-18.00); BUN/Creat Ratio 18.42 Ratio (12.00-20.00); Blood Urea Nitrogen 26.9 mg/dL (9.0-27.0); Calcium 9.7 mg/dL (8.7-10.3); Carbon Dioxide 23.6 mmol/L (20.0-27.5); Globulin 2.9 g/dL (1.6-3.3); Non-African American GFR(CKD) 45.4 (60.0-200.0); Potassium 3.9 mmol/L (3.5-5.5); Total Bilirubin 0.5 mg/dL (0.30-1.20); Total Protein 7.5 g/dL (6.2-8.2)
== END | disposition home or self-care (01) ==
LOC: LABWHC1 08:39
PROVIDERS: ATTEND Internal Medicine Cardiovascular Disease
DX: I10 Essential (primary) hypertension (principal)
CPT/HCPCS: 36415; 80053; 85025

== ENCOUNTER 2024-01-20 07:56 | Emergency (ER) | payer MEDICARE ==
[2024-01-20 08:02] VITALS: BP 141/85; PULSE 63; RESP 20; TEMP 97.6
--- NOTE | 2024-01-20 08:32 | ED ---
General Adult HPI - General Chief complaint: Abdominal Pain Stated complaint: Constipation Time Seen by Provider: 01/20/24 08:05 Source: patient Mode of arrival: ambulatory Limitations: no limitations - History of Present Illness Initial comments: Patient is an 79-year-old male presenting to emergency department with concerns for constipation. Patient states he has not had a normal bowel movement in a month now. Patient states he was seen twice at a previous emergency department and had CAT scan done both times. Patient states 1 time he was diagnosed with a kidney stone and treated for that. Patient states he is still only having small bowel movements, sometimes liquidy sometimes hard. Patient is not eating as much recently. - Related Data Home Medications Medication Instructions Recorded Confirmed Erythromycin Ophth Oint [Romycin 1 applic BOTH EYES QID PRN 10/25/17 08/07/18 Ophth Oint] Triamcinolone 0.025% Cream 1 applic TOPICAL DIRECTED PRN 10/25/17 08/07/18 [Kenalog 0.025% Cream] Benzoyl Peroxide [Panoxyl] 1 applic TOPICAL DAILY PRN 11/23/17 08/07/18 Acetaminophen [Tylenol] 325 mg PO Q4H PRN 03/27/18 08/07/18 Calcium Carbonate [Tums] 500 mg PO DAILY PRN 03/27/18 08/07/18 Psyllium Husk 100% [Metamucil 6 gm PO DAILY PRN 03/27/18 08/07/18 Packet] Aspirin 325 mg PO DAILY PRN 08/07/18 08/07/18 Docusate [Colace] 100 mg PO DAILY PRN 08/07/18 08/07/18 Allergies Allergy/AdvReac Type Severity Reaction Status Date / Time tamsulosin AdvReac HEARTBURN, Verified 01/20/24 07:57 GAS Review of Systems ROS Statement: Those systems with pertinent positive or pertinent negative responses have been documented in the HPI. ROS Other: All systems not noted in ROS Statement are negative. Constitutional: Denies: fever Eyes: Denies: eye pain ENT: Denies: ear pain Respiratory: Denies: dyspnea Cardiovascular: Denies: chest pain Gastrointestinal: Reports: as per HPI, abdominal pain (Occasional abdominal cramping, none at this time), constipation. Denies: nausea, vomiting Musculoskeletal: Denies: back pain Past Medical History Past Medical History: Musculoskeletal Disorder, Prostate Disorder Additional Past Medical History / Comment(s): States irreg H/R hx, hx of kidney stones X3, dry eyes, colon polyps, occ hip & neck pain - old fall injury. Enlarged prostate, "bladder not emptying properly." History of Any Multi-Drug Resistant Organisms: None Reported Additional Past Surgical History / Comment(s): Colonoscopy, ESWL treatment right ureteral calculus 10/31/2017 and ESWL right renal calculus 11/28/2017, cysto 03/2018. Past Anesthesia/Blood Transfusion Reactions: No Reported Reaction Past Psychological History: No Psychological Hx Reported Smoking Status: Never smoker Past Alcohol Use History: None Reported Past Drug Use History: None Reported - Past Family History Mother Family Medical History: No Reported History Brother(s) Family Medical History: Cancer Additional Family Medical History / Comment(s): Lung General Exam Limitations: no limitations General appearance: alert, in no apparent distress Head exam: Present: normocephalic Eye exam: Present: normal appearance Neck exam: Present: normal inspection Respiratory exam: Present: normal lung sounds bilaterally Cardiovascular Exam: Present: regular rate, normal rhythm Expanded Peripheral pulses: 2+: Posterior Tibialis (R), Posterior Tibialis (L) GI/Abdominal exam: Present: soft, normal bowel sounds. Absent: distended, tenderness, guarding, rebound, rigid, pulsatile mass Rectal exam: Present: normal inspection (No impaction) Extremities exam: Present: normal inspection Neurological exam: Present: alert Psychiatric exam: Present: normal affect, normal mood Skin exam: Present: normal color Course Vital Signs 01/20/24 07:58 Temperature 97.6 F Pulse Rate 63 Respiratory 20 Rate Blood Pressure 141/85 O2 Sat by Pulse 95 Oximetry Medical Decision Making - Medical Decision Making Was pt. sent in by a medical professional or institution (, PA, COOK ROOM SUPERVISOR, urgent care, hospital, or [facility]...) When possible be specific @ -No Did you speak to anyone other than the patient for history (EMS, parent, family, police, friend...)? What history was obtained from this source @ -No Did you review nursing and triage notes (agree or disagree)? Why? @ -I reviewed and agree with nursing and triage notes Were old charts reviewed (outside hosp., previous admission, EMS record, old EKG, old radiological studies, urgent care reports/EKG's, [facility] records)? Report findings @ -No old charts were reviewed Differential Diagnosis (chest pain, altered mental status, abdominal pain women, abdominal pain men, vaginal bleeding, weakness, fever, dyspnea, syncope, headache, dizziness, GI bleed, back pain, seizure, CVA, palpatations, mental health, musculoskeletal)? @ -Differential Abdominal Pain Men: Appendicitis, cholecystitis, diverticulosis, ischemic bowel, pancreatitis, hepatitis, UTI, gastroenteritis, AAA, incarcerated hernia, bowel obstruction, constipation, inflammatory bowel, hepatitis, peptic ulcer disease, splenic infarction, perforated viscus, testicular torsion, this is not meant to be an all-inclusive list EKG interpreted by me (3pts min.). @ -As above X-rays interpreted by me (1pt min.). @ -Abdominal x-ray does not reveal acute abnormality CT interpreted by me (1pt min.). @ -None done U/S interpreted by me (1pt. min.). @ -None done What testing was considered but not performed or refused? (CT, X-rays, U/S, labs)? Why? @ -None What meds were considered but not given or refused? Why? @ -None Did you discuss the management of the patient with other professionals (professionals i.e. , PA, COOK ROOM SUPERVISOR, lab, RT, psych nurse, social media senior associate, water well driller, teacher, supply officer, manager case)? Give summary @ -No Was smoking cessation discussed for >3mins.? @ -No Was critical care preformed (if so, how long)? @ -No Were there social determinants of health that impacted care today? How? (Homelessness, low income, unemployed, alcoholism, drug addiction, transportation, low edu. Level, literacy, decrease access to med. care, senior living, rehab)? @ -No Was there de-escalation of care discussed even if they declined (Discuss DNR or withdrawal of care, Hospice)? DNR status @ -No What co-morbidities impacted this encounter? (DM, HTN, Smoking, COPD, CAD, Cancer, CVA, ARF, Chemo, Hep., AIDS, mental health diagnosis, sleep apnea, morbid obesity)? @ -None Was patient admitted / discharged? Hospital course, mention meds given and route, prescriptions, significant lab abnormalities, going to OR and other pertinent info. @ -Patient presents with concerns for constipation. Patient x-ray unremarkable. Patient provided enema with relief of symptoms. Patient we discharged and recommended follow-up with his primary care physician. Undiagnosed new problem with uncertain prognosis? @ -No Drug Therapy requiring intensive monitoring for toxicity (Heparin, Nitro, Insulin, Cardizem)? @ -No Were any procedures done? @ -No Diagnosis/symptom? @ -Constipation Acute, or Chronic, or Acute on Chronic? @ -Acute on chronic Uncomplicated (without systemic symptoms) or Complicated (systemic symptoms)? @ -Default Side effects of treatment? @ -No Exacerbation, Progression, or Severe Exacerbation? @ -No Poses a threat to life or bodily function? How? (Chest pain, USA, PA, pneumonia, PE, COPD, DKA, ARF, appy, cholecystitis, CVA, Diverticulitis, Homicidal, Suicidal, threat to staff... and all critical care pts) @ -No Disposition Clinical Impression: Constipation Disposition: HOME SELF-CARE Condition: Stable Instructions (If sedation given, give patient instructions): Constipation (ED), High Fiber Diet (ED) Additional Instructions: Please follow-up with primary care physician in the next day or 2 for recheck. Return for increased pain, vomiting, fever, unable to have bowel movement, worsening symptoms or other concerns. [id number] Metamucil daily. Is patient prescribed a controlled substance at d/c from ED?: No Referrals: Carlitos Eason DO [Primary Care Provider] - 1-2 days Time of Disposition: 11:34
--- NOTE | 2024-01-20 09:22 | XR ---
EXAMINATION TYPE: XR abdomen 1V DATE OF EXAM: 01/20/2024 8:40 AM COMPARISON: 03/29/2018 CLINICAL INDICATION: Male, 79 years old with history of constipation; TECHNIQUE: One radiographic view of the abdomen was obtained. FINDINGS: There is a small stool burden, otherwise, the bowel gas pattern is nonspecific without dila jaime loops of small or large bowel. . Fecal material and gas are demonstrated throughout the colon and rectum. There is no evidence for organomegaly or pneumoperitoneum. The osseous structures are intac t. No abnormal calcifications are present. Hernia repair anchors projecting over the pelvis. IMPRESSION: Nonspecific bowel gas pattern without radiographic evidence for acute process. [facility], , 01/20/2024 9:20 AM
== END 2024-01-20 12:09 | disposition home or self-care (01) ==
LOC: EC 07:56
DX: K59.00 Constipation, unspecified (principal); Z88.8 Allergy status to other drugs, medicaments and biological substances
CPT/HCPCS: 74018; 99284

== ENCOUNTER 2024-01-24 08:08 | Emergency (ER) | payer MEDICARE ==
--- NOTE | 2024-01-24 08:40 | ED ---
General Adult HPI - General Chief complaint: Abdominal Pain Stated complaint: Constipation Time Seen by Provider: 01/24/24 08:16 Source: patient, RN notes reviewed Mode of arrival: ambulatory Limitations: no limitations - History of Present Illness Initial comments: This is an 79-year-old male who presents to the emergency department for constipation. States that this has been an ongoing issue for the last 3 to 4 weeks. He was at [facility] twice last month and had CT scans done both times. States that they were never able to figure out the cause. They started him on senna and lactulose, but states that they were not effective. He was then evaluated here on 01/19 and had an x-ray done and was then given an enema. States that the enema was only mildly effective but he has not had a bowel movement since. He is using an [id number] fiber, but not taking any other stool softeners or laxatives at this time. He occasionally has abdominal pain, but denies any currently. Denies any nausea or vomiting. - Related Data Home Medications Medication Instructions Recorded Confirmed Erythromycin Ophth Oint [Romycin 1 applic BOTH EYES QID PRN 10/25/17 08/07/18 Ophth Oint] Triamcinolone 0.025% Cream 1 applic TOPICAL DIRECTED PRN 10/25/17 08/07/18 [Kenalog 0.025% Cream] Benzoyl Peroxide [Panoxyl] 1 applic TOPICAL DAILY PRN 11/23/17 08/07/18 Acetaminophen [Tylenol] 325 mg PO Q4H PRN 03/27/18 08/07/18 Calcium Carbonate [Tums] 500 mg PO DAILY PRN 03/27/18 08/07/18 Psyllium Husk 100% [Metamucil 6 gm PO DAILY PRN 03/27/18 08/07/18 Packet] Aspirin 325 mg PO DAILY PRN 08/07/18 08/07/18 Docusate [Colace] 100 mg PO DAILY PRN 08/07/18 08/07/18 Previous Rx's Medication Instructions Recorded polyethylene glycoL 3350 [Miralax] 17 gm PO DAILY PRN #527 gm 01/24/24 Allergies Allergy/AdvReac Type Severity Reaction Status Date / Time tamsulosin AdvReac HEARTBURN, Verified 01/24/24 08:16 GAS Review of Systems ROS Statement: Those systems with pertinent positive or pertinent negative responses have been documented in the HPI. ROS Other: All systems not noted in ROS Statement are negative. Past Medical History Past Medical History: Musculoskeletal Disorder, Prostate Disorder Additional Past Medical History / Comment(s): States irreg H/R hx, hx of kidney stones X3, dry eyes, colon polyps, occ hip & neck pain - old fall injury. Enlarged prostate, "bladder not emptying properly.", kidney stones, constipation History of Any Multi-Drug Resistant Organisms: None Reported Additional Past Surgical History / Comment(s): Colonoscopy, ESWL treatment right ureteral calculus 10/31/2017 and ESWL right renal calculus 11/28/2017, cysto 03/2018. Past Anesthesia/Blood Transfusion Reactions: No Reported Reaction Past Psychological History: No Psychological Hx Reported Smoking Status: Never smoker Past Alcohol Use History: None Reported Past Drug Use History: None Reported - Past Family History Mother Family Medical History: No Reported History Brother(s) Family Medical History: Cancer Additional Family Medical History / Comment(s): Lung General Exam Limitations: no limitations General appearance: alert Head exam: Present: atraumatic, normocephalic, normal inspection Respiratory exam: Present: normal lung sounds bilaterally. Absent: respiratory distress, wheezes, rales, rhonchi, stridor Cardiovascular Exam: Present: regular rate, normal rhythm, normal heart sounds. Absent: systolic murmur, diastolic murmur, rubs, gallop, clicks GI/Abdominal exam: Present: soft, normal bowel sounds. Absent: distended, tenderness, guarding, rebound, rigid Neurological exam: Present: alert, oriented X3, CN II-XII intact Psychiatric exam: Present: normal affect, normal mood Skin exam: Present: warm, dry, intact, normal color. Absent: rash Course Vital Signs 01/24/24 01/24/24 01/24/24 08:12 09:49 11:36 Temperature 98.1 F 98 F 98 F Pulse Rate 59 L 63 56 L Respiratory 18 18 16 Rate Blood Pressure 141/62 138/68 136/76 O2 Sat by Pulse 96 97 97 Oximetry 01/24/24 13:00 Temperature 98 F Pulse Rate 59 L Respiratory 16 Rate Blood Pressure 133/86 O2 Sat by Pulse 98 Oximetry Medical Decision Making - Medical Decision Making This is an 79-year-old male who presents to the emergency department for constipation. Was pt. sent in by a medical professional or institution? @ -No Did you speak to anyone other than the patient for history? @ -No Did you review nursing and triage notes? @ -Yes, and I agree, it is accurate with regards to the patient's symptoms. Were old charts reviewed? @ -No Differential Diagnosis? @ -Dehydration, medication induced, obstruction, colitis, this is not meant to be an all-inclusive list. EKG interpreted by me (3pts min.)? @ -Not obtained X-rays interpreted by me (1pt min.)? @ -KUB x-ray obtained. My interpretation identifies no dilation of the bowel loops. CT interpreted by me (1pt min.)? @ -CT scan of the abdomen and pelvis obtained. My interpretation identifies no dilation of the bowel loops. U/S interpreted by me (1pt. min.)? @ -Not obtained What testing was considered but not performed? (CT, X-rays, U/S, labs)? Why? @ -None What meds were considered but not given? Why? @ -None Did you discuss the management of the patient with other professionals? @ -No Did you reconcile home meds? @ -No Was smoking cessation discussed for >3mins.? @ -No Was critical care preformed (if so, how long)? @ -No Were there social determinants of health that impacted care today? How? (Homelessness, low income, unemployed, alcoholism, drug addiction, transportation, low edu. Level, literacy, decrease access to med. care, snf, rehab)? @ -No Was there de-escalation of care discussed even if they declined? (Discuss DNR or withdrawal of care, Hospice)? @ -No What co-morbidities impacted this encounter? (DM, HTN, Smoking, COPD, CAD, Cancer, CVA, Hep., AIDS, mental health diagnosis, sleep apnea, morbid obesity)? @ -None Was patient admitted / discharged? @ -Discharged. Lab work demonstrates signs of dehydration and is otherwise unremarkable. However, renal function is fairly stable when compared with prior. He was given a 1 L bolus of IV fluids. We first started with a KUB x- ray revealing some fecal debris in the colon, but was otherwise negative for any acute process. Patient was very concerned about some kind of obstruction and was very frustrated about not having any answers. Advised that we can do a CT scan, however given his renal function it would need to be with oral contrast which can be more time-consuming. Patient requested to proceed. CT scan with oral contrast obtained revealing moderate colonic stool burden involving the p roximal to mid colon. No evidence for bowel obstruction was identified. Findings reviewed with the patient. He was given a milk molasses enema and was able to produce some stool. States that it was more than last time. However, advised that given that the stool is further up in the colon the enemas only provide some relief. He needs to make sure he is taking something orally. He was sent home with GoLytely solution to try to essentially clean himself out, which is what he requested. MiraLAX prescribed to start taking after the GoLytely if needed to try to soften his stool. However, advised that if he continues with the fiber powder and increases his fluid intake, he may not need the MiraLAX after the GoLytely. Advised close follow-up with his PCP for reevaluation. Patient discharged home in stable condition. Case discussed with ED attending Dr. Irvin. Return precautions reviewed in depth, the patient is instructed to return to the emergency department with any new, worsening, or concerning symptoms. Patient verbalized understanding. Undiagnosed new problem with uncertain prognosis? @ -None Drug Therapy requiring intensive monitoring for toxicity (Heparin, Nitro, Insulin, Cardizem)? @ -None Were any procedures done? @ -None Diagnosis/symptom? @ -Constipation Acute, or Chronic, or Acute on Chronic? @ -Acute Uncomplicated (without systemic symptoms) or Complicated (systemic symptoms)? @ -Uncomplicated Side effects of treatment? @ -None Exacerbation, Progression, or Severe Exacerbation] @ -Not applicable Poses a threat to life or bodily function? @ -No - Lab Data Result diagrams: 01/24/24 08:51 01/24/24 08:51 Lab Results 01/24/24 01/24/24 01/24/24 Range/Units 08:51 08:51 08:51 WBC 3.4 L (3.8-10.6) k/uL RBC 4.17 L (4.30-5.90) m/uL Hgb 13.2 (13.0-17.5) gm/dL Hct 40.0 (39.0-53.0) % MCV 96.1 (80.0-100.0) fL MCH 31.7 (25.0-35.0) pg MCHC 33.0 (31.0-37.0) g/dL RDW 13.0 (11.5-15.5) % Plt Count 227 (150-450) k/uL MPV 8.0 Neutrophils % 63 % Lymphocytes % 23 % Monocytes % 9 % Eosinophils % 1 % Basophils % 1 % Neutrophils # 2.2 (1.3-7.7) k/uL Lymphocytes # 0.8 L (1.0-4.8) k/uL Monocytes # 0.3 (0-1.0) k/uL Eosinophils # 0.0 (0-0.7) k/uL Basophils # 0.0 (0-0.2) k/uL Sodium 137 (137-145) mmol/L Potassium 3.6 (3.5-5.1) mmol/L Chloride 101 (98-107) mmol/L Carbon Dioxide 31 H (22-30) mmol/L Anion Gap 5 mmol/L BUN 27 H (9-20) mg/dL Creatinine 1.52 H (0.66-1.25) mg/dL Est GFR (CKD-EPI)AfAm 49 (>60 ml/min/1.73 sqM) Est GFR (CKD-EPI)NonAf 43 (>60 ml/min/1.73 sqM) Glucose 144 H (74-99) mg/dL Plasma Lactic Acid Humberto (0.7-2.0) mmol/L Calcium 10.0 (8.4-10.2) mg/dL Magnesium 1.8 (1.6-2.3) mg/dL Total Bilirubin 0.8 (0.2-1.3) mg/dL AST 34 (17-59) U/L ALT 20 (4-49) U/L Alkaline Phosphatase 64 (38-126) U/L Total Protein 6.3 (6.3-8.2) g/dL Albumin 4.1 (3.5-5.0) g/dL Urine Color Yellow Urine Appearance Clear (Clear) Urine pH 5.0 (5.0-8.0) Ur Specific [place] 1.022 (1.001-1.035) Urine Protein Trace H (Negative) Urine Glucose (UA) Negative (Negative) Urine Ketones Negative (Negative) Urine Blood Trace H (Negative) Urine Nitrite Negative (Negative) Urine Bilirubin Negative (Negative) Urine Urobilinogen <2.0 (<2.0) mg/dL Ur Leukocyte Esterase Negative (Negative) Urine RBC 5 (0-5) /hpf Urine WBC 1 (0-5) /hpf Ur Squamous Epith Cells 3 (0-4) /hpf Calcium Oxalate Crystal Occasional H (None) /hpf Hyaline Casts 5 H (0-2) /lpf Urine Mucus Rare H (None) /hpf 01/24/24 Range/Units 08:51 WBC (3.8-10.6) k/uL RBC (4.30-5.90) m/uL Hgb (13.0-17.5) gm/dL Hct (39.0-53.0) % MCV (80.0-100.0) fL MCH (25.0-35.0) pg MCHC (31.0-37.0) g/dL RDW (11.5-15.5) % Plt Count (150-450) k/uL MPV Neutrophils % % Lymphocytes % % Monocytes % % Eosinophils % % Basophils % % Neutrophils # (1.3-7.7) k/uL Lymphocytes # (1.0-4.8) k/uL Monocytes # (0-1.0) k/uL Eosinophils # (0-0.7) k/uL Basophils # (0-0.2) k/uL Sodium (137-145) mmol/L Potassium (3.5-5.1) mmol/L Chloride (98-107) mmol/L Carbon Dioxide (22-30) mmol/L Anion Gap mmol/L BUN (9-20) mg/dL Creatinine (0.66-1.25) mg/dL Est GFR (CKD-EPI)AfAm (>60 ml/min/1.73 sqM) Est GFR (CKD-EPI)NonAf (>60 ml/min/1.73 sqM) Glucose (74-99) mg/dL Plasma Lactic Acid Humberto 1.2 (0.7-2.0) mmol/L Calcium (8.4-10.2) mg/dL Magnesium (1.6-2.3) mg/dL Total Bilirubin (0.2-1.3) mg/dL AST (17-59) U/L ALT (4-49) U/L Alkaline Phosphatase (38-126) U/L Total Protein (6.3-8.2) g/dL Albumin (3.5-5.0) g/dL Urine Color Urine Appearance (Clear) Urine pH (5.0-8.0) Ur Specific [place] (1.001-1.035) Urine Protein (Negative) Urine Glucose (UA) (Negative) Urine Ketones (Negative) Urine Blood (Negative) Urine Nitrite (Negative) Urine Bilirubin (Negative) Urine Urobilinogen (<2.0) mg/dL Ur Leukocyte Esterase (Negative) Urine RBC (0-5) /hpf Urine WBC (0-5) /hpf Ur Squamous Epith Cells (0-4) /hpf Calcium Oxalate Crystal (None) /hpf Hyaline Casts (0-2) /lpf Urine Mucus (None) /hpf - Radiology Data Radiology results: report reviewed, image reviewed Disposition Clinical Impression: Constipation Disposition: HOME SELF-CARE Instructions (If sedation given, give patient instructions): Constipation (ED) Additional Instructions: Return to the emergency department with any new, worsening, or concerning symptoms. Take the GoLytely solution provided in the emergency department tomorrow. The following day you can begin taking the MiraLAX prescribed. Take this once daily. It may take a couple of days before you notice improvement. Make sure you remain well-hydrated. Continue taking the fiber supplement as well. Prescriptions: polyethylene glycoL 3350 [Miralax] 17 gm PO DAILY PRN #527 gm PRN Reason: Constipation Is patient prescribed a controlled substance at d/c from ED?: No Referrals: Carlitos Eason DO [Primary Care Provider] - 1-2 days Time of Disposition: 13:10
[2024-01-24] MEDS: SODIUM CHLORIDE 0.9% 1,000 ML IV STA (08:59)
--- NOTE | 2024-01-24 09:01 | XR ---
EXAMINATION TYPE: XR KUB DATE OF EXAM: 01/24/2024 8:51 AM COMPARISON: 03/29/2018 CLINICAL INDICATION: Male, 79 years old with history of Constipation, TECHNIQUE: XR KUB view(s) obtained. FINDINGS: There is a normal bowel gas pattern. There is some fecal debris in the ascending colon region. Psoas margins are normal. No organomegaly is present. IMPRESSION: 1. Unremarkable abdomen [facility], , 01/24/2024 8:59 AM
[2024-01-24 09:05] LABS: Basophils % (A) 1 %; Eosinophils % (A) 1 %; HGB 13.2 gm/dL (13.0-17.5); Lymphocytes # (A) 0.8 k/uL (1.0-4.8); Lymphocytes % (A) 23 %; MCH 31.7 pg (25.0-35.0); MCV 96.1 fL (80.0-100.0); Monocytes # (A) 0.3 k/uL (0-1.0); Monocytes % (A) 9 %; Neutrophils # (A) 2.2 k/uL (1.3-7.7); Neutrophils % (A) 63 %; Platelet Count 227 k/uL (150-450); RBC 4.17 m/uL (4.30-5.90); WBC 3.4 k/uL (3.8-10.6)
[2024-01-24 09:25] LABS: ALT 20 U/L (4-49); AST 34 U/L (17-59); African American GFR (CKD) 49 (>60 ml/min/1.73 sqM); Albumin 4.1 g/dL (3.5-5.0); Alkaline Phosphatase 64 U/L (38-126); Anion Gap 5 mmol/L; Blood Urea Nitrogen 27 mg/dL (9-20); Carbon Dioxide 31 mmol/L (22-30); Chloride 101 mmol/L (98-107); Glucose 144 mg/dL (74-99); Magnesium 1.8 mg/dL (1.6-2.3); Non-African American GFR(CKD) 43 (>60 ml/min/1.73 sqM); Potassium 3.6 mmol/L (3.5-5.1); Sodium 137 mmol/L (137-145); Total Bilirubin 0.8 mg/dL (0.2-1.3); Total Protein 6.3 g/dL (6.3-8.2)
[2024-01-24] MEDS ORDERED: IOPAMIDOL CONTRAST (ORAL USE) VIAL PO PRN (09:31)
[2024-01-24 09:50] VITALS: TEMP 98
[2024-01-24 10:30] LABS: Appearance,Urine Clear (Clear); Bilirubin,Urine Negative (Negative); Blood,Urine Trace (Negative); Calcium Oxalate Crystals,Urine Occasional /hpf; Color,Urine Yellow; Glucose,Urine (UA) Negative (Negative); Hyaline Casts,Urine 5 /lpf (0-2); Ketones,Urine Negative (Negative); Leukocyte Esterase,Urine Negative (Negative); Mucus,Urine Rare /hpf; Nitrite,Urine Negative (Negative); Protein,Urine Trace (Negative); RBC,Urine 5 /hpf (0-5); Specific Gravity,Urine 1.022 (1.001-1.035); Squamous Epithelial Cell,Urine 3 /hpf (0-4); Urobilinogen,Urine <2.0 mg/dL (<2.0); WBC,Urine 1 /hpf (0-5)
[2024-01-24 11:37] VITALS: RESP 16
--- NOTE | 2024-01-24 11:43 | CT ---
EXAMINATION TYPE: CT abdomen pelvis wo con CT DLP: 458.6 mGycm, Automated exposure control for dose reduction was used. DATE OF EXAM: 01/24/2024 11:26 AM COMPARISON: CT abdomen pelvis 03/15/2018, KUB radiograph 01/24/2024 CLINICAL INDICATION:Male, 79 years old with history of Abdominal pain, constipation; ABDOMINAL PAIN A ND CONSTIPATION TECHNIQUE: Standard CT of the abdomen and pelvis following the administration of oral contrast. No intravenous contrast which limits evaluation. Coronal and sagittal reformats were performed. FINDINGS: LOWER CHEST: Posterior dependent subsegmental atelectasis is noted. ABDOMEN LIVER: A few scattered hypodense lesions within the liver which are slightly increased in size in jason or examination and demonstrate attenuation consistent with cysts. GALLBLADDER AND BILE DUCTS: Layering increased densities within the lumen consistent with gallstones are present. PANCREAS: Unremarkable. SPLEEN: Unremarkable. ADRENAL GLANDS: Unremarkable. KIDNEYS AND URETERS: Renal cysts with largest within the right kidney measuring 4.6 cm. There is some septation with calcification identified again. Nonobstructive bilateral renal calculi the largest wi thin both kidneys measuring up to 3 mm.No definitive ureteric calculus. There is a pelvic phlebolith abutting the distal right ureter. No definitive hydronephrosis. 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 REPRODUCTIVE: Coarse calcifications of the prostate gland are identified. ABDOMEN & PELVIS STOMACH AND BOWEL: Stomach and duodenum are unremarkable. Enteric contrast reaches the ileocecal junc tion. No evidence of bowel obstruction. Moderate amount of stool is present within the proximal to mi d colon. No focal bowel wall thickening or surrounding inflammatory changes. PERITONEUM: No evidence of pneumoperitoneum or free fluid. VASCULATURE: No evidence of aortic aneurysm. MUSCULOSKELETAL: No acute osseous abnormalities. Mild to moderate disc degeneration changes are prese nt throughout the thoracolumbar spine. LYMPH NODES: No gross evidence for lymphadenopathy. SOFT TISSUE/ABDOMINAL WALL: Postsurgical changes of the anterior lower pelvic wall with mesh anchors identified. IMPRESSION: 1. Moderate colonic stool burden involving the proximal to mid colon. No evidence for bowel obstructi on. 2. Nonobstructive bilateral renal calculi. Bosniak 2 right renal cyst. 3. Cholelithiasis. [facility], , 01/24/2024 11:41 AM
[2024-01-24 13:19] VITALS: BP 133/86; PULSE 59
[2024-01-24] MEDS: PEG 3350 (236 GM/BTL) + LYTES 4,000 ML BOTTLE PO ONE (13:23)
== END 2024-01-24 13:34 | disposition home or self-care (01) ==
LOC: EC 08:08
DX: N20.0 Calculus of kidney (principal); N28.1 Cyst of kidney, acquired; K80.20 Calculus of gallbladder without cholecystitis without obstruction; Z88.8 Allergy status to other drugs, medicaments and biological substances
CPT/HCPCS: 36415; 74018; 74176; 80053; 81001; 83605; 83735; 85025; 96360; 96361; 99284

== ENCOUNTER 2024-02-24 07:30 | Emergency (ER) | payer MEDICARE ==
--- NOTE | 2024-02-24 08:31 | ED ---
General Adult HPI - General Chief complaint: Urogenital Stated complaint: Urogenital Time Seen by Provider: 02/24/24 07:50 Source: patient, RN notes reviewed, old records reviewed Mode of arrival: ambulatory Limitations: no limitations - History of Present Illness Initial comments: This is an 79-year-old male who states since Tuesday he has not been urinating very much and is concerned that he is not making urine or that he has a blockage that he cannot go. Patient denies any suprapubic abdominal pain. Patient denies any back pain. Patient states he does have a history of kidney stones but he is not having any abdominal pain or back pain or flank pain. Patient [place] any fever chills. Patient is just concerned about the volume of his urination he states it does not appear to be that much. Patient denies being constipated states he had a very large bowel movement yesterday - Related Data Home Medications Medication Instructions Recorded Confirmed Erythromycin Ophth Oint [Romycin 1 applic BOTH EYES QID PRN 10/25/17 08/07/18 Ophth Oint] Triamcinolone 0.025% Cream 1 applic TOPICAL DIRECTED PRN 10/25/17 08/07/18 [Kenalog 0.025% Cream] Benzoyl Peroxide [Panoxyl] 1 applic TOPICAL DAILY PRN 11/23/17 08/07/18 Acetaminophen [Tylenol] 325 mg PO Q4H PRN 03/27/18 08/07/18 Calcium Carbonate [Tums] 500 mg PO DAILY PRN 03/27/18 08/07/18 Psyllium Husk 100% [Metamucil 6 gm PO DAILY PRN 03/27/18 08/07/18 Packet] Aspirin 325 mg PO DAILY PRN 08/07/18 08/07/18 Docusate [Colace] 100 mg PO DAILY PRN 08/07/18 08/07/18 Previous Rx's Medication Instructions Recorded polyethylene glycoL 3350 [Miralax] 17 gm PO DAILY PRN #527 gm 01/24/24 Allergies Allergy/AdvReac Type Severity Reaction Status Date / Time tamsulosin AdvReac HEARTBURN, Verified 02/24/24 07:40 GAS Review of Systems ROS Statement: Those systems with pertinent positive or pertinent negative responses have been documented in the HPI. ROS Other: All systems not noted in ROS Statement are negative. Past Medical History Past Medical History: Musculoskeletal Disorder, Prostate Disorder Additional Past Medical History / Comment(s): States irreg H/R hx, hx of kidney stones X3, dry eyes, colon polyps, occ hip & neck pain - old fall injury. Enlarged prostate, "bladder not emptying properly.", kidney stones, constipation History of Any Multi-Drug Resistant Organisms: None Reported Additional Past Surgical History / Comment(s): Colonoscopy, ESWL treatment right ureteral calculus 10/31/2017 and ESWL right renal calculus 11/28/2017, cysto 03/2018. Past Anesthesia/Blood Transfusion Reactions: No Reported Reaction Past Psychological History: No Psychological Hx Reported Smoking Status: Never smoker Past Alcohol Use History: None Reported Past Drug Use History: None Reported - Past Family History Mother Family Medical History: No Reported History Brother(s) Family Medical History: Cancer Additional Family Medical History / Comment(s): Lung General Exam - General Exam Comments Initial Comments: GENERAL: Patient is well-developed and well-nourished. Patient is nontoxic and well- hydrated and is in no acute distress. ENT: Neck is soft and supple. No significant lymphadenopathy is noted. Oropharynx is clear. Moist mucous membranes. Neck has full range of motion without eliciting any pain. EYES: The sclera were anicteric and conjunctiva were pink and moist. Extraocular movements were intact and pupils were equal round and reactive to light. Eyelids were unremarkable. PULMONARY: Unlabored respirations. Good breath sounds bilaterally. No audible rales rhonchi or wheezing was noted. CARDIOVASCULAR: There is a regular rate and rhythm without any murmurs gallops or rubs. ABDOMEN: Soft and nontender with normal bowel sounds. SKIN: Skin is clear with no lesions or rashes and otherwise unremarkable. NEUROLOGIC: Patient is alert and oriented x3. Cranial nerves II through XII are grossly intact. Motor and sensory are also intact. Normal speech, volume and content. Symmetrical smile. MUSCULOSKELETAL: Normal extremities with adequate strength and full range of motion. No lower extremity swelling or edema. No calf tenderness. LYMPHATICS: No significant lymphadenopathy is noted PSYCHIATRIC: Normal psychiatric evaluation. Limitations: no limitations Course Vital Signs 02/24/24 07:40 Temperature 97.5 F L Pulse Rate 72 Respiratory 18 Rate Blood Pressure 164/67 O2 Sat by Pulse 96 Oximetry Medical Decision Making - Medical Decision Making Was pt. sent in by a medical professional or institution (BRITTA Rose, TECHNICAL PROJECT MANAGER, urgent care, hospital, or [facility]...) When possible be specific @ -No Did you speak to anyone other than the patient for history (EMS, parent, family, police, friend...)? What history was obtained from this source @ -No Did you review nursing and triage notes (agree or disagree)? Why? @ -I reviewed and agree with nursing and triage notes Were old charts reviewed (outside hosp., previous admission, EMS record, old EKG, old radiological studies, urgent care reports/EKG's, [facility] records)? Report findings @ -No old charts were reviewed Differential Diagnosis? @ -Urinary tract infection, urinary obstruction, urethritis, this is not an all- inclusive list EKG interpreted by me (3pts min.). @ -As above X-rays interpreted by me (1pt min.). @ -None done CT interpreted by me (1pt min.). @ -None done U/S interpreted by me (1pt. min.). @ -None done What testing was considered but not performed or refused? (CT, X-rays, U/S, labs)? Why? @ -None What meds were considered but not given or refused? Why? @ -None Did you discuss the management of the patient with other professionals (professionals i.e. BRITTA Rose, TECHNICAL PROJECT MANAGER, lab, RT, psych nurse, social insurance adviser, [employer] officer, teacher, employee service officer, business case analyst)? Give summary @ -No Was smoking cessation discussed for >3mins.? @ -No Was critical care preformed (if so, how long)? @ -No Were there social determinants of health that impacted care today? How? (Homelessness, low income, unemployed, alcoholism, drug addiction, transportation, low edu. Level, literacy, decrease access to med. care, group home, r ehab)? @ -No Was there de-escalation of care discussed even if they declined (Discuss DNR or withdrawal of care, Hospice)? DNR status @ -No What co-morbidities impacted this encounter? (DM, HTN, Smoking, COPD, CAD, Cancer, CVA, ARF, Chemo, Hep., AIDS, mental health diagnosis, sleep apnea, morbid obesity)? @ -None Was patient admitted / discharged? Hospital course, mention meds given and route, prescriptions, significant lab abnormalities, going to OR and other pertinent info. @ -Patient's lab work was essentially normal for him there was no acute abnormalities. Patient's urine did not show an obvious infection. Undiagnosed new problem with uncertain prognosis? @ -No Drug Therapy requiring intensive monitoring for toxicity (Heparin, Nitro, Insulin, Cardizem)? @ -No Were any procedures done? @ -No Diagnosis/symptom? @ -Urinary urgency Acute, or Chronic, or Acute on Chronic? @ -Acute Uncomplicated (without systemic symptoms) or Complicated (systemic symptoms)? @ -Uncomplicated Side effects of treatment? @ -No Exacerbation, Progression, or Severe Exacerbation? @ -No Poses a threat to life or bodily function? How? (Chest pain, [place], ME, pneumonia, PE, COPD, DKA, ARF, appy, cholecystitis, CVA, Diverticulitis, Homicidal, Suicidal, threat to staff... and all critical care pts) @ -No - Lab Data Result diagrams: 02/24/24 08:25 02/24/24 08:25 Lab Results 02/24/24 02/24/24 02/24/24 Range/Units 08:25 08:25 08:25 WBC 3.5 L (3.8-10.6) k/uL RBC 4.19 L (4.30-5.90) m/uL Hgb 13.5 (13.0-17.5) gm/dL Hct 40.3 (39.0-53.0) % MCV 96.2 (80.0-100.0) fL MCH 32.1 (25.0-35.0) pg MCHC 33.4 (31.0-37.0) g/dL RDW 13.2 (11.5-15.5) % Plt Count 175 (150-450) k/uL MPV 7.7 Neutrophils % 59 % Lymphocytes % 26 % Monocytes % 10 % Eosinophils % 1 % Basophils % 0 % Neutrophils # 2.1 (1.3-7.7) k/uL Lymphocytes # 0.9 L (1.0-4.8) k/uL Monocytes # 0.4 (0-1.0) k/uL Eosinophils # 0.0 (0-0.7) k/uL Basophils # 0.0 (0-0.2) k/uL Sodium 138 (137-145) mmol/L Potassium 3.9 (3.5-5.1) mmol/L Chloride 99 (98-107) mmol/L Carbon Dioxide 30 (22-30) mmol/L Anion Gap 9 mmol/L BUN 25 H (9-20) mg/dL Creatinine 1.29 H (0.66-1.25) mg/dL Est GFR (CKD-EPI)AfAm 60 (>60 ml/min/1.73 sqM) Est GFR (CKD-EPI)NonAf 52 (>60 ml/min/1.73 sqM) Glucose 121 H (74-99) mg/dL Calcium 10.0 (8.4-10.2) mg/dL Total Bilirubin 0.8 (0.2-1.3) mg/dL AST 26 (17-59) U/L ALT 15 (4-49) U/L Alkaline Phosphatase 62 (38-126) U/L Total Protein 6.5 (6.3-8.2) g/dL Albumin 4.4 (3.5-5.0) g/dL Urine Color Yellow Urine Appearance Cloudy (Clear) Urine pH 5.5 (5.0-8.0) Ur Specific [place] 1.018 (1.001-1.035) Urine Protein Trace H (Negative) Urine Glucose (UA) Negative (Negative) Urine Ketones 1+ H (Negative) Urine Blood Negative (Negative) Urine Nitrite Negative (Negative) Urine Bilirubin Negative (Negative) Urine Urobilinogen <2.0 (<2.0) mg/dL Ur Leukocyte Esterase Small H (Negative) Urine WBC 8 H (0-5) /hpf Ur Squamous Epith Cells 3 (0-4) /hpf Calcium Oxalate Crystal Moderate H (None) /hpf Amorphous Sediment Rare H (None) /hpf Urine Mucus Occasional H (None) /hpf Disposition Clinical Impression: Urinary urgency Disposition: HOME SELF-CARE Is patient prescribed a controlled substance at d/c from ED?: No Referrals: Carlitos Eason DO [Primary Care Provider] - 1-2 days Time of Disposition: 09:19
[2024-02-24 08:46] LABS: Basophils % (A) 0 %; Eosinophils % (A) 1 %; HCT 40.3 % (39.0-53.0); HGB 13.5 gm/dL (13.0-17.5); Lymphocytes # (A) 0.9 k/uL (1.0-4.8); Lymphocytes % (A) 26 %; MCH 32.1 pg (25.0-35.0); MCHC 33.4 g/dL (31.0-37.0); MCV 96.2 fL (80.0-100.0); Mean Platelet Volume 7.7; Monocytes # (A) 0.4 k/uL (0-1.0); Monocytes % (A) 10 %; Neutrophils # (A) 2.1 k/uL (1.3-7.7); Neutrophils % (A) 59 %; Platelet Count 175 k/uL (150-450); RBC 4.19 m/uL (4.30-5.90); RDW 13.2 % (11.5-15.5); WBC 3.5 k/uL (3.8-10.6)
[2024-02-24 09:02] LABS: ALT 15 U/L (4-49); AST 26 U/L (17-59); African American GFR (CKD) 60 (>60 ml/min/1.73 sqM); Albumin 4.4 g/dL (3.5-5.0); Alkaline Phosphatase 62 U/L (38-126); Anion Gap 9 mmol/L; Blood Urea Nitrogen 25 mg/dL (9-20); Carbon Dioxide 30 mmol/L (22-30); Chloride 99 mmol/L (98-107); Glucose 121 mg/dL (74-99); Non-African American GFR(CKD) 52 (>60 ml/min/1.73 sqM); Potassium 3.9 mmol/L (3.5-5.1); Sodium 138 mmol/L (137-145); Total Bilirubin 0.8 mg/dL (0.2-1.3); Total Protein 6.5 g/dL (6.3-8.2)
[2024-02-24 09:05] LABS: Amorphous Sediment,Urine Rare /hpf; Appearance,Urine Cloudy (Clear); Bilirubin,Urine Negative (Negative); Blood,Urine Negative (Negative); Calcium Oxalate Crystals,Urine Moderate /hpf; Color,Urine Yellow; Glucose,Urine (UA) Negative (Negative); Ketones,Urine 1+ (Negative); Leukocyte Esterase,Urine Small (Negative); Mucus,Urine Occasional /hpf; Nitrite,Urine Negative (Negative); PH, Urine 5.5 (5.0-8.0); Protein,Urine Trace (Negative); Specific Gravity,Urine 1.018 (1.001-1.035); Squamous Epithelial Cell,Urine 3 /hpf (0-4); Urobilinogen,Urine <2.0 mg/dL (<2.0); WBC,Urine 8 /hpf (0-5)
[2024-02-24 09:41] VITALS: BP 150/71; PULSE 71; RESP 16; TEMP 97.7
== END 2024-02-24 09:35 | disposition home or self-care (01) ==
LOC: EC 07:30
DX: R39.15 Urgency of urination (principal); Z88.8 Allergy status to other drugs, medicaments and biological substances
CPT/HCPCS: 36415; 80053; 81001; 85025; 99283